=== PATIENT | male | born 1990 | race African-American/Black ===

== ENCOUNTER 2019-02-12 21:24 | Emergency (ER) | payer OTHER ==
[~2019-02-12] VITALS: Ht 172.7 cm; Wt 83.9 kg
[~2019-02-12 21:24] MED LIST: DEPAKOTE PO; IBUPROFEN 600600 M1 PO; KEPPRA250 MG PO; TOPAMAX100 MG PO
[2019-02-12 21:53] LABS: HEMATOCRIT 42.2 % (42.0-52.0); HEMOGLOBIN 14.3 gm/dL (14.0-18.0); MCH 28.5 pg (26.0-34.0); MCHC 33.9 g/dL (28.0-37.0); MCV 84.2 fL (80.0-100.0); RBC 5.02 mil/uL (4.50-6.00); RDW 15.2 % (10.5-14.5)
[2019-02-12 21:56] LABS: CALCIUM 9.2 mg/dL (8.5-10.1); CREATININE 1.3 mg/dL (0.7-1.3); POTASSIUM 3.2 mmol/L (3.5-5.1)
[2019-02-12 22:02] LABS: ALBUMIN 4.3 g/dL (3.4-5.0); DIRECT BILIRUBIN 0.1 mg/dL (<0.1-0.3); TOTAL BILIRUBIN 0.5 mg/dL (<0.1-1.0); TOTAL PROTEIN 7.5 g/dL (6.4-8.2)
[2019-02-12 22:04] LABS: LIPASE 244 U/L (73-393); TROPONIN-I <0.06 ng/mL (<0.06)
[2019-02-12 22:05] LABS: APTT 26.4 Seconds (24.5-32.8); INR 1.1; PROTIME 11.3 Seconds (9.3-11.4)
[2019-02-13 00:15] LABS: URINE BILIRUBIN 1+ (Negative); URINE BLOOD NEGATIVE (Negative); URINE CLARITY CLEAR; URINE COLOR YELLOW; URINE GLUCOSE-RANDOM* NEGATIVE (Negative); URINE KETONES 2+ (Negative); URINE LEUKOCYTES NEGATIVE (Negative); URINE NITRITE NEGATIVE (Negative); URINE PROTEIN (DIPSTICK) 1+ (Negative)
[2019-02-13 00:30] LABS: BACTERIA 1-9 Few /HPF (None Seen); MUCUS 4-6 Moderate strn/LPF (None Seen); SQUAMOUS 0-3 Few /LPF (0-3); URINE RBC 0-2 Rare /HPF (0-2); URINE WBC 0-5 Rare /HPF (0-5)
[2019-02-13 00:31] LABS: AMP/METHAMP Negative (Negative); BARBITURATES Negative (Negative); BENZODIAZEPINES Negative (Negative); CELLULAR CASTS 0-3 Few /LPF (None Seen); COCAINE Negative (Negative); CRYSTALS None Seen /LPF (None Seen); HYALINE CASTS 0-3 Few /LPF (None Seen); METHADONE Negative (Negative); OPIATES Negative (Negative); PCP POSITIVE (Negative)
[2019-02-13] MEDS ORDERED: NORCO 5-325 TA1 EAC1 PO (00:47)
[2019-02-13 01:05] VITALS: BP 117/78
== END 2019-02-13 01:05 | disposition home or self-care (01) ==
LOC: ER 21:24
PROVIDERS: Emergency Medicine
DX: S02.5XXA Fracture of tooth (traumatic), initial encounter for closed fracture (principal); S02.2XXA Fracture of nasal bones, initial encounter for closed fracture; S40.012A Contusion of left shoulder, initial encounter; S00.11XA Contusion of right eyelid and periocular area, initial encounter; S00.12XA Contusion of left eyelid and periocular area, initial encounter; S00.81XA Abrasion of other part of head, initial encounter; S60.812A Abrasion of left wrist, initial encounter; S60.511A Abrasion of right hand, initial encounter; S80.211A Abrasion, right knee, initial encounter; S00.511A Abrasion of lip, initial encounter; F17.210 Nicotine dependence, cigarettes, uncomplicated; V03.90XA Pedestrian on foot injured in collision with car, pick-up truck or van, unspecified whether traffic or nontraffic accident, initial encounter; Y93.89 Activity, other specified; Y92.89 Other specified places as the place of occurrence of the external cause; Y99.8 Other external cause status

== ENCOUNTER 2020-05-04 19:58 | Emergency (ER) | payer OTHER ==
[~2020-05-04] VITALS: Ht 175.3 cm; Wt 83.9 kg
[~2020-05-04 19:58] MED LIST changes: +NORCO 5-325 TA1 EAC1 PO
[2020-05-04 20:55] LABS: BASOPHILS 0.4 % (0.0-2.0); EOSINOPHILS 2.6 % (0.0-3.0); HEMATOCRIT 40.7 % (42.0-52.0); HEMOGLOBIN 13.7 gm/dL (14.0-18.0); LYMPHOCYTES 29.3 % (24.0-44.0); MCH 29.4 pg (26.0-34.0); MCHC 33.7 g/dL (28.0-37.0); MCV 87.2 fL (80.0-100.0); PLATELET COUNT 148 thou/uL (150-400); POLYS 59.7 % (36.0-66.0); RBC 4.67 mil/uL (4.50-6.00); RDW 14.4 % (10.5-14.5); WBC 5.1 thou/uL (4.0-11.0)
[2020-05-04 20:58] LABS: ANION GAP 11 mmol/L (7-16); BUN 6 mg/dL (7-18); CALCIUM 8.8 mg/dL (8.5-10.1); CHLORIDE 106 mmol/L (98-107); CO2 26 mmol/L (21-32); GLUCOSE 99 mg/dL (74-106); SODIUM 143 mmol/L (136-145)
[2020-05-04 21:04] LABS: ALBUMIN 3.3 g/dL (3.4-5.0); DIRECT BILIRUBIN < 0.1 mg/dL (<0.1-0.2); MAGNESIUM 1.8 mg/dL (1.8-2.4); SGOT 19 U/L (15-37); SGPT 16 U/L (30-65); TOTAL BILIRUBIN 0.2 mg/dL (0.2-1.0)
[2020-05-04 21:05] LABS: URINE BILIRUBIN NEGATIVE (Negative); URINE BLOOD NEGATIVE (Negative); URINE CLARITY CLEAR; URINE COLOR YELLOW; URINE GLUCOSE-RANDOM* NEGATIVE (Negative); URINE KETONES NEGATIVE (Negative); URINE LEUKOCYTES-REFLEX NEGATIVE (Negative); URINE NITRITE-REFLEX NEGATIVE (Negative); URINE PROTEIN (DIPSTICK) NEGATIVE (Negative); URINE SPECIFIC GRAVITY 1.025 (1.005-1.035); URINE UROBILINOGEN 0.2 E.U./dl (0.2-1.0)
[2020-05-04 22:42] VITALS: BP 140/81
== END 2020-05-04 22:45 | disposition home or self-care (01) ==
LOC: ER 19:58
PROVIDERS: Emergency Medicine
DX: R56.9 Unspecified convulsions (principal); F17.210 Nicotine dependence, cigarettes, uncomplicated; Z79.899 Other long term (current) drug therapy

== ENCOUNTER 2020-05-22 17:13 | Emergency (ER) | payer OTHER ==
[~2020-05-22] VITALS: Ht 172.7 cm; Wt 83.2 kg
[2020-05-22] MEDS ORDERED: LEVETIRACETAM750 MG PO (17:20)
[2020-05-22 17:41] LABS: HEMATOCRIT 44.1 % (42.0-52.0); HEMOGLOBIN 14.9 gm/dL (14.0-18.0); MCH 29.2 pg (26.0-34.0); MCHC 33.8 g/dL (28.0-37.0); MCV 86.4 fL (80.0-100.0); PLATELET COUNT 201 thou/uL (150-400); RDW 14.3 % (10.5-14.5)
[2020-05-22 17:51] LABS: CALCIUM 9.4 mg/dL (8.5-10.1); CREATININE 1.1 mg/dL (0.7-1.3); POTASSIUM 3.9 mmol/L (3.5-5.1)
[2020-05-22 18:06] LABS: ABSOLUTE NEUTROPHILS 1.9 thou/uL (1.4-8.2); ANISOCYTOSIS 1+; ATYPICAL LYMPHS 1 %; LARGE PLATELETS RARE
[2020-05-22 18:22] LABS: URINE BILIRUBIN NEGATIVE (Negative); URINE BLOOD NEGATIVE (Negative); URINE CLARITY CLEAR; URINE COLOR YELLOW; URINE GLUCOSE-RANDOM* NEGATIVE (Negative); URINE KETONES TRACE (Negative); URINE LEUKOCYTES-REFLEX NEGATIVE (Negative); URINE NITRITE-REFLEX NEGATIVE (Negative); URINE PROTEIN (DIPSTICK) TRACE (Negative); URINE SPECIFIC GRAVITY 1.025 (1.005-1.035)
[2020-05-22 18:35] VITALS: BP 127/69
== END 2020-05-22 18:37 | disposition still patient (30) ==
LOC: ER 17:13
PROVIDERS: Emergency Medicine
DX: R56.9 Unspecified convulsions (principal); F17.210 Nicotine dependence, cigarettes, uncomplicated; Z79.899 Other long term (current) drug therapy

== ENCOUNTER 2020-06-06 17:04 | Emergency (ER) | payer OTHER ==
[~2020-06-06] VITALS: Ht 177.8 cm; Wt 84.4 kg
[~2020-06-06 17:04] MED LIST changes: +LEVETIRACETAM750 MG PO
== END 2020-06-06 19:00 | disposition home or self-care (01) ==
LOC: ER 17:04
DX: S01.81XA Laceration without foreign body of other part of head, initial encounter (principal); F17.210 Nicotine dependence, cigarettes, uncomplicated; Z79.899 Other long term (current) drug therapy; W26.0XXA Contact with knife, initial encounter; Y93.89 Activity, other specified; Y92.89 Other specified places as the place of occurrence of the external cause; Y99.8 Other external cause status

== ENCOUNTER 2020-08-11 14:03 | Emergency (ER) | payer OTHER ==
[~2020-08-11] VITALS: Ht 180.3 cm; Wt 84.4 kg
[2020-08-11] MEDS ORDERED: DIVALPROEX SOD500 M1 PO (15:12)
[2020-08-11 15:30] LABS: ABSOLUTE NEUTROPHILS 3.8 thou/uL (1.4-8.2); BASOPHILS 0.5 % (0.0-2.0); HEMATOCRIT 40.9 % (42.0-52.0); HEMOGLOBIN 13.6 gm/dL (14.0-18.0); LYMPHOCYTES 30.6 % (24.0-44.0); MCH 28.7 pg (26.0-34.0); MCHC 33.1 g/dL (28.0-37.0); MCV 86.5 fL (80.0-100.0); MONOCYTES 10.5 % (1.0-8.0); PLATELET COUNT 217 thou/uL (150-400); POLYS 56.4 % (36.0-66.0); RBC 4.73 mil/uL (4.50-6.00); RDW 14.4 % (10.5-14.5); WBC 6.7 thou/uL (4.0-11.0)
[2020-08-11 15:37] LABS: CALCIUM 9.4 mg/dL (8.5-10.1); CREATININE 1.1 mg/dL (0.7-1.3); POTASSIUM 3.3 mmol/L (3.5-5.1)
[2020-08-11 15:43] LABS: ALBUMIN 3.6 g/dL (3.4-5.0); TOTAL BILIRUBIN 0.3 mg/dL (0.2-1.0); TOTAL PROTEIN 7.5 g/dL (6.4-8.2)
[2020-08-11] MEDS ORDERED: NORCO 5-325 TA1 EAC2 PO (17:13)
[2020-08-11 17:18] LABS: URINE BILIRUBIN NEGATIVE (Negative); URINE BLOOD NEGATIVE (Negative); URINE CLARITY CLEAR; URINE COLOR YELLOW; URINE GLUCOSE-RANDOM* NEGATIVE (Negative); URINE KETONES NEGATIVE (Negative); URINE LEUKOCYTES-REFLEX NEGATIVE (Negative); URINE NITRITE-REFLEX NEGATIVE (Negative); URINE PROTEIN (DIPSTICK) NEGATIVE (Negative); URINE SPECIFIC GRAVITY >= 1.030 (1.005-1.035); URINE UROBILINOGEN 0.2 E.U./dl (0.2-1.0)
[2020-08-11 17:24] LABS: AMP/METHAMP Negative (Negative); BARBITURATES Negative (Negative); BENZODIAZEPINES Negative (Negative); COCAINE Negative (Negative); METHADONE Negative (Negative); OPIATES Negative (Negative); PCP Negative (Negative)
[2020-08-11 17:41] VITALS: BP 127/74
--- NOTE | 2020-08-12 07:31 | EKG ---
[facility] [address] [place] [address] ELECTROCARDIOGRAM REPORT Name: BILLY PARSONS Room #: DEP CAMELIA Collazo#: [id number] Admission: 08/11/20 Attend Phys: Discharge: 08/11/20 Date of : [birth year] Report #: [id number] THIS REPORT FOR: cc: FAM - No family physician/PCP FAM - No family physician/PCP Beka Rushing MD FACC ~ <ELECTRONICALLY SIGNED> By: Beka Rushing MD, FACC 08/12/20 0730 [id number] Beka Rushing MD, FACC /EPI
== END 2020-08-11 17:42 | disposition home or self-care (01) ==
LOC: ER 14:03
PROVIDERS: Physician Assistant
DX: S01.81XA Laceration without foreign body of other part of head, initial encounter (principal); R56.9 Unspecified convulsions; F17.210 Nicotine dependence, cigarettes, uncomplicated; Z79.899 Other long term (current) drug therapy; W18.39XA Other fall on same level, initial encounter; Y93.89 Activity, other specified; Y92.89 Other specified places as the place of occurrence of the external cause; Y99.8 Other external cause status

== ENCOUNTER 2021-01-04 20:17 | Emergency (ER) | payer OTHER ==
[~2021-01-04] VITALS: Ht 175.3 cm; Wt 84.4 kg
--- NOTE | ~2021-01-04 | EMS ---
[address] [address] EMS Patient Care Report Name: BILLY PARSONS Room #: REG CAMELIA Collazo#: [id number] Admission: 01/04/21 Attend Phys: Discharge: Date of : [birth year] Report #: [id number] THIS REPORT FOR: //name// Report Transmitted: 01/04/2021 22:28 EMS Care Summary [place], [place]/[facility] Incident [id number] @ 01/04/2021 19:44 Incident Location [address] [place] [address] Patient BILLY PARSONS Male, 30 Years 1990 Patient Address [address] [place] [address] Patient History Epilepsy,Seizures, Patient Allergies No known allergies, Patient Medications Depakote, Keppra, Topamax, Chief Complaint SEIZURES Disposition Transported No Lights/[place] Dispatch Reason Unconscious/Fainting Transported To [facility] Narrative UPON ARRIVAL PT LATERAL ON GROUND COSNCIOUS NOT ALERT. BYSTANDERS ON SCENE STATE PT WAS PLAYING BASKETBALL WHEN HE JUST STOOD THERE THEN FELL FACE FIRST ONTO GROUND AND HAD SEIZURE ACTIVITY FOR AN UNKNOWN AMOUNT OF TIME. PT HAS A LACERATION TO THE BOTTOM OF THE CHIN WHERE HE HIT THE GROUND. PT POSTICTAL [address] [address] EMS Patient Care Report Name: BILLY PRASONS Room #: REG CAMELIA Collazo#: [id number] Admission: 01/04/21 Attend Phys: Discharge: Date of : [birth year] Report #: [id number] CURRENTLY AND HAS A SEIZURE HX. PT ASSISTED TO COT. MULTIPLE ATTEMPTS MADE TO PUT C-COLLAR ON BUT PT PULLS IT OFF EVERY TIME. PT TRANSPORTED TO [facility]. Initial Vitals @20:07P: 84,CO: 15,SpO2: 96, @PTAP: 90,BP: 121/74,GCS: 13,Glucose: 99,SpO2: 97, @20:10P: 75,BP: 135/79,GCS: 14,CO: 14,SpO2: 98, @19:57P: 90,R: 16,BP: 158/62,Pain: 0/10,GCS: 14,SpO2: 97,Revised Trauma: 12, Assessments @19:52MENTAL:Confused,Person Oriented,SKIN:HEENT:Head/Face: LAC,Neck/Airway: No Abnormalities,LUNG SOUNDS:General: No Abnormalities,ABDOMEN:General: No Abnormalities,PELVIS//GI:EXTREMITIES:Right Arm: LAC,Left Arm: LAC,Left Leg: No Abnormalities,Right Leg: No Abnormalities,PULSE:Radial: 2+ Normal,NEURO:Seizures, Impression Seizures Procedures @19:53ALS AssessmentResponse: UnchangedSucceeded@19:58Saline Lock 10cc (18 ga) Site: Antecubital-LeftResponse: UnchangedSucceeded@19:583-Lead ECGResponse: UnchangedSucceeded@19:55Spinal Motion RestrictionResponse: UnchangedFailed 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,BP: 121/74 M,PULSE: 90,RR: R,SPO2: 97 Ox,ETCO2: ,B,PAIN: ,GCS: 13, 19:38,Call Received 19:38,Dispatch Notified 19:44,Dispatched 19:44,En Route 19:50,On Scene 19:52,At Patient 19:53,ALS Assessment,Response: UnchangedSucceeded, 19:55,Spinal Motion Restriction,Response: UnchangedFailed, 19:57,BP: 158/62 M,PULSE: 90,RR: 16 R,SPO2: 97 Ox,ETCO2: ,BG: ,PAIN: 0,GCS: 14, 19:58,3-Lead ECG,Response: UnchangedSucceeded, 19:58,Saline Lock 10cc 18 ga Site: Antecubital-Left,Response: UnchangedSucceeded, 20:00,Depart Scene 20:07,BP: / M,PULSE: 84,RR: R,SPO2: 96 Ox,ETCO2: ,BG: ,PAIN: ,GCS: , 20:10,BP: 135/79 M,PULSE: 75,RR: R,SPO2: 98 Ox,ETCO2: ,BG: ,PAIN: ,GCS: 14, 20:14,At Destination 20:30,Call Closed Disclaimer v1.1 Copyright [address] [employer] [address] [address] EMS Patient Care Report Name: BILLY PARSONS Room #: REG Zay#: [id number] Admission: 01/04/21 Attend Phys: Discharge: Date of : [birth year] Report #: [id number] This EMS Care Summary contains data elements from the applicable legal record (which may be displayed differently). It is designed to provide pertinent information for the following purposes: continuity of care, clinical quality, and state data reporting. The complete legal record is available to ED staff and administrators of the receiving hospital in [facility]'s Patient Tracker. All data is provided "as is."
[~2021-01-04 20:17] MED LIST changes: +DIVALPROEX SOD500 M1 PO; +NORCO 5-325 TA1 EAC2 PO
[2021-01-04 20:37] LABS: BASOPHILS 0.5 % (0.0-2.0); EOSINOPHILS 0.9 % (0.0-3.0); HEMATOCRIT 42.6 % (42.0-52.0); HEMOGLOBIN 14.6 gm/dL (14.0-18.0); LYMPHOCYTES 22.9 % (24.0-44.0); MCH 29.8 pg (26.0-34.0); MCHC 34.3 g/dL (28.0-37.0); MONOCYTES 13.4 % (1.0-8.0); PLATELET COUNT 198 thou/uL (150-400); POLYS 62.3 % (36.0-66.0); RBC 4.89 mil/uL (4.50-6.00); RDW 15.6 % (10.5-14.5)
[2021-01-04 20:45] LABS: CALCIUM 9.6 mg/dL (8.5-10.1); CREATININE 1.4 mg/dL (0.7-1.3); POTASSIUM 3.7 mmol/L (3.5-5.1)
[2021-01-04 20:52] LABS: ALBUMIN 3.8 g/dL (3.4-5.0); MAGNESIUM 1.8 mg/dL (1.8-2.4); TOTAL BILIRUBIN 0.3 mg/dL (0.2-1.0); TOTAL PROTEIN 7.7 g/dL (6.4-8.2)
[2021-01-04 23:40] VITALS: BP 130/70
== END 2021-01-04 23:43 | disposition short-term general hospital (02) ==
LOC: ER 20:17
PROVIDERS: Physician Assistant
DX: S02.609B Fracture of mandible, unspecified, initial encounter for open fracture (principal); S02.119A Unspecified fracture of occiput, initial encounter for closed fracture; R56.9 Unspecified convulsions; F17.210 Nicotine dependence, cigarettes, uncomplicated; Z79.899 Other long term (current) drug therapy; W18.39XA Other fall on same level, initial encounter; Y93.67 Activity, basketball; Y92.89 Other specified places as the place of occurrence of the external cause; Y99.8 Other external cause status

== ENCOUNTER 2021-07-22 14:59 | Emergency (ER) | payer OTHER ==
--- NOTE | ~2021-07-22 | EMS ---
[address] [address] EMS Patient Care Report Name: BILLY PARSONS Room #: DEP CAMELIA Collazo#: [id number] Admission: 07/22/21 Attend Phys: Discharge: 07/22/21 Date of : [birth year] Report #: [id number] THIS REPORT FOR: //name// Report Transmitted: 07/24/2021 09:49 EMS Care Summary [place], [place]/[facility] Incident [id number] @ 07/22/2021 14:27 Incident Location [address] [place] [address] Patient BILLY PARSONS Male, 31 Years 1990 Patient Address [address] [place] [address] Patient History Epilepsy,Diabetes,Seizures, Patient Allergies No known allergies, Patient Medications Unknown, Depakote, Chief Complaint Witnessed seizure Disposition Transported No Lights/[place] Dispatch Reason Convulsions/Seizure Transported To [facility] Narrative Arrived on scene to find our patient laying on his right side on the floor of the liquor store. The store staff stated that the patient had been seated in a stool at an arcade type machine when the noticed him slide off of the stool and started seizing. Witnesses' stated that the seizure lasted approximately 5-[address] [address] EMS Patient Care Report Name: BILLY PARSONS Room #: DEP ER Zay#: [id number] Admission: 07/22/21 Attend Phys: Discharge: 07/22/21 Date of : [birth year] Report #: [id number] minutes. Upon our arrival patient was only aroused to painful and very loud verbal stimuli. Patient was alert to name only. Patient was moved onto the cot. Patient slowly became more aware of his surroundings and did answer yes to having a seizure disorder. Patient contradicted himself stating he would have multiple seizures in a row, then stating he only had one seizure at a time. Physical exam revealed no gross deformity, injury, or bleeding. Witnesses' stated they did not believe the patient hit his head. Vital signs, glucose, and IV access established. Patient transported and transferred to receiving facility without change in patient condition. Initial Vitals @14:42P: 101,BP: 125/77,SpO2: 100, @14:51P: 94,R: 16,BP: 119/55,Pain: 0/10,GCS: 13,CO: 21,SpO2: 95,Revised Trauma: 12, @14:40P: 97,R: 16,BP: 150/112,Pain: 0/10,GCS: 12,Glucose: 69,SpO2: 100,Revised Trauma: 11, Assessments @14:35MENTAL:Confused,Person Oriented,SKIN:HEENT:Head/Face: No Abnormalities,Neck/Airway: No Abnormalities,LUNG SOUNDS:ABDOMEN:PELVIS//GI:Incontinence,EXTREMITIES:Left Arm: No Abnormalities,Right Arm: No Abnormalities,Left Leg: No Abnormalities,Right Leg: No Abnormalities,PULSE:NEURO:No Abnormalities,@14:53MENTAL:Place Oriented,Confused,Person Oriented,SKIN:HEENT:LUNG SOUNDS:ABDOMEN:PELVIS//GI:EXTREMITIES:PULSE:NEURO: Impression Seizures Procedures @14:44 IV Therapy - Saline Lock 10cc (18 ga) Site: Antecubital-Left Response: UnchangedSucceeded @14:35 ALS Assessment Response: UnchangedSucceeded Timeline 14:25,Call Received 14:25,Dispatch Notified 14:27,Dispatched 14:29,En Route 14:33,On Scene 14:35,At Patient 14:35,ALS Assessment,Response: UnchangedSucceeded, 14:40,BP: 150/112 M,PULSE: 97,RR: 16 R,SPO2: 100 Ox,ETCO2: ,B,PAIN: 0,GCS: 12, 14:42,BP: 125/77 M,PULSE: 101,RR: R,SPO2: 100 Ox,ETCO2: ,BG: ,PAIN: ,GCS: , [address] [address] EMS Patient Care Report Name: ISSABILLY MAEGAN Room #: DEP Zay#: [id number] Admission: 07/22/21 Attend Phys: Discharge: 07/22/21 Date of : 89 Report #: [id number] 14:43,Depart Scene 14:44,IV Therapy - Saline Lock 10cc 18 ga Site: Antecubital-Left,Response: UnchangedSucceeded, 14:51,BP: 119/55 M,PULSE: 94,RR: 16 R,SPO2: 95 Ox,ETCO2: ,BG: ,PAIN: 0,GCS: 13, 14:54,At Destination 15:08,Call Closed Disclaimer v1.1 Copyright 2020 [employer] This EMS Care Summary contains data elements from the applicable legal record (which may be displayed differently). It is designed to provide pertinent information for the following purposes: continuity of care, clinical quality, and state data reporting. The complete legal record is available to ED staff and administrators of the receiving hospital in [employer]'s Patient Tracker. All data is provided "as is."
== END 2021-07-22 15:05 | disposition left against medical advice (07) ==
LOC: ER 14:59
DX: R56.9 Unspecified convulsions (principal); F17.210 Nicotine dependence, cigarettes, uncomplicated; Z79.899 Other long term (current) drug therapy